=== PATIENT | male | born 1990 | race African-American/Black ===

== ENCOUNTER 2018-03-04 18:46 | Emergency (ER) | payer OTHER ==
[2018-03-04] MEDS ORDERED: DIPHTH,PERTUSS(ACELL),TET 0.5 ML DISP.SYRIN IM ONE ×2 (18:52→19:28)
[2018-03-04 18:53] VITALS: BP 164/76; PULSE 84; TEMP 98.4; BMI 22.4
--- NOTE | 2018-03-04 18:54 | PDOC ---
Rapid Medical Evaluation Chief Complaint: Injury Time Seen by Provider: 03/04/18 18:51 Medical Evaluation: 03/04/18 18:53 I have performed a brief in-person evaluation of this patient. The patient presents with a chief complaint of:R facial laceration s/p injury at work today, fell onto ice and struck face agianst car door, no LOC, BELLO, n/v. Pertinent physical exam findings:jagged lac to R face I have ordered the following:tetanus The patient will proceed to the ED for further evaluation Discharge Disposition - Diagnosis Facial laceration Qualifiers: Encounter type: initial encounter Qualified Code(s): S01.81XA - Laceration without foreign body of other part of head, initial encounter - Referrals - Patient Instructions - Post Discharge Activity
--- NOTE | 2018-03-04 19:57 | PDOC ---
History of Present Illness - General Chief Complaint: Injury Stated Complaint: INJURY ON JOB Time Seen by Provider: 03/04/18 18:51 - History of Present Illness Initial Comments: 03/04/18 19:54 28-year-old male without comorbidities tenderness just updated presents for evaluation of a laceration on his right cheek. No nausea vomiting postinjury headache or visual changes Past History - Past Medical History Allergies/Adverse Reactions: Allergies Allergy/AdvReac Type Severity Reaction Status Date / Time No Known Allergies Allergy Verified 03/04/18 18:53 Home Medications: Ambulatory Orders NK [No Known Home Medication] 03/04/18 COPD: No CHF: No Disorders: No Liver Disease: No Seizures: No - Surgical History Appendectomy: No Cholecystectomy: No Neurologic Surgery: No - Immunization History Immunization Up to Date: No - Suicide/Smoking/Psychosocial Hx Smoking History: Never smoked Have you smoked in the past 12 months: No Information on smoking cessation initiated: No Hx Alcohol Use: No Drug/Substance Use Hx: No Review of Systems - Review of Systems Integumentary: Yes: See HPI *Physical Exam - Vital Signs Last Vital Signs Temp Pulse Resp BP Pulse Ox 98.4 F 84 18 164/76 99 03/04/18 18:51 03/04/18 18:51 03/04/18 18:51 03/04/18 18:51 03/04/18 18:51 - Physical Exam Comments: 03/04/18 19:54 HEAD: NC/AT, there is a 2 cm meter V-shaped laceration on the right cheek. Subcutaneous fat the laceration is not through and through the oral cavity is clear EYES: Conjuntiva clear Ears: Canals and TM's normal NOSE: No d/c THROAT: Moist mucous membrances, oral pharanx clear, uvula midline NECK: Supple without adenopathy CARDIAC: S1 S2 LUNGS: CTA Full and Equal breath sounds ABDOMEN: Soft NT ND MS: Full ROM in all joints without edema NEUROLOGIC: No gross sensory or motor deficits, NVID SKIN: Normal color and temperature no lesions or rashes Moderate Sedation - Procedure Monitoring Vital Signs: Procedure Monitoring Vital Signs Temperature 98.4 F 03/04/18 18:51 Pulse Rate 84 03/04/18 18:51 Respiratory Rate 18 03/04/18 18:51 Blood Pressure 164/76 03/04/18 18:51 O2 Sat by Pulse Oximetry (%) 99 03/04/18 18:51 Medical Decision Making - Medical Decision Making 03/04/18 19:55 Plastic surgery was offered but declined. Patient elected I performed primary closure advised him on wound healing possibility of a scar. He is on board. Under aseptic technique 6 mL of 1% lidocaine without epinephrine was used to anesthetize the area the wound was copiously flushed and explored to its base in a bloodless field no foreign body identified. Edges were approximated with 4 interrupted simple sutures using 6-0 Prolene. One of the sutures at the apex of the wound was closed with a 6-0 nylon. This was tolerated well and done without crepitation *DC/Admit/Observation/Transfer Diagnosis at time of Disposition: Facial laceration Qualifiers: Encounter type: initial encounter Qualified Code(s): S01.81XA - Laceration without foreign body of other part of head, initial encounter - Discharge Dispostion Disposition: HOME Condition at time of disposition: Stable Decision to Admit order: No - Referrals Referrals: Inderjit Mai [Nurse Practitioner] - Misael Mcnally MD [Non Staff, Medical] - Yao Pillai MD [Staff Physician] - Bess Mccormack MD [Non Staff, Medical] - Veronica Molina [Non Staff, Medical] - Shay Dobbins [Non Staff, Medical] - Jose Guadalupe Wong MD [Staff Physician] - Justin Bhatt [Non Staff, Medical] - Bhupinder Stokes MD [Staff Physician] - Jhonatan Barksdale MD [Non Staff, Medical] - Vamsi Marte MD [Staff Physician] - Jesus Virk MD [Staff Physician] - Benjie Mccray MD [Non Staff, Medical] - - Patient Instructions Printed Discharge Instructions: DI for Laceration Repair -- Simple Additional Instructions: Return to the emergency room should symptoms worsen or go unresolved. Please follow-up with plastic surgery for wound management otherwise come back to the ER in 7 days for suture removal. Return to the emergency room sooner if problems develop such as drainage redness or swelling to the area of the wound in the meantime keep the wound clean for the next 48 hours. After which he may wash with soap and water. Do not shave - Post Discharge Activity
== END 2018-03-04 20:00 | disposition home or self-care (01) ==
LOC: JERFT 18:46
PROC: 0HQ1XZZ Repair Face Skin, External Approach (ICD-10-PCS; principal; 2018-03-04)
DX: S01.411A Laceration without foreign body of right cheek and temporomandibular area, initial encounter (principal); X58.XXXA Exposure to other specified factors, initial encounter; Y93.9 Activity, unspecified; Y92.89 Other specified places as the place of occurrence of the external cause; X58.XXXD Exposure to other specified factors, subsequent encounter; Y92.9 Unspecified place or not applicable
CPT/HCPCS: 90715; 99281-25

== ENCOUNTER 2018-03-11 14:04 | Emergency (ER) | payer OTHER ==
[2018-03-11 14:59] VITALS: BP 108/75; PULSE 85; TEMP 98.4; BMI 22.4
--- NOTE | 2018-03-11 16:27 | PDOC ---
History of Present Illness - General Chief Complaint: Suture/Staple Removal(Here) Stated Complaint: Suture/Staple Removal(Here) Time Seen by Provider: 03/11/18 14:44 - History of Present Illness Initial Comments: 03/11/18 16:24 When he 8-year-old male presents for suture removal of sutures that were placed by myself 7 days ago he has had no sequela since suture placement Past History - Past Medical History Allergies/Adverse Reactions: Allergies Allergy/AdvReac Type Severity Reaction Status Date / Time No Known Allergies Allergy Verified 03/04/18 18:53 Home Medications: Ambulatory Orders NK [No Known Home Medication] 03/04/18 COPD: No CHF: No Disorders: No Liver Disease: No Seizures: No - Surgical History Appendectomy: No Cholecystectomy: No Neurologic Surgery: No - Immunization History Immunization Up to Date: No - Suicide/Smoking/Psychosocial Hx Smoking History: Never smoked Have you smoked in the past 12 months: No Information on smoking cessation initiated: No Hx Alcohol Use: No Drug/Substance Use Hx: No Review of Systems - Review of Systems Constitutional: Yes: See HPI *Physical Exam - Vital Signs Last Vital Signs Temp Pulse Resp BP Pulse Ox 98.4 F 85 18 108/75 100 03/11/18 14:57 03/11/18 14:57 03/11/18 14:57 03/11/18 14:57 03/11/18 14:57 - Physical Exam Comments: 03/11/18 16:24 Wound on the right cheek is clean dry and intact sutures are in place normal surrounding skin color and temperature Moderate Sedation - Procedure Monitoring Vital Signs: Procedure Monitoring Vital Signs Temperature 98.4 F 03/11/18 14:57 Pulse Rate 85 03/11/18 14:57 Respiratory Rate 18 03/11/18 14:57 Blood Pressure 108/75 03/11/18 14:57 O2 Sat by Pulse Oximetry (%) 100 03/11/18 14:57 Medical Decision Making - Medical Decision Making 03/11/18 16:25 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 Keep the area clean and dry. Left open to air. Continue gently wash with soap and water do not scrub the area. When the scab falls off you may shave do not feel the scab - Post Discharge Activity
== END 2018-03-11 16:28 | disposition home or self-care (01) ==
LOC: JERFT 14:04
CPT/HCPCS: 99281-25